=== PATIENT | female | born 1990 ===

== ENCOUNTER 2017-03-07 10:19 | Emergency (ER) | payer SELFPAY ==
[2017-03-07 10:39] VITALS: BP 128/93
--- NOTE | 2017-03-14 10:25 | ED Elopement Review ---
ED Pt Elopement review - Call Back decision Pt Call Back Decision: No action required
== END 2017-03-07 19:20 | disposition left against medical advice (07) ==
LOC: ED 10:19
DX: R06.02 Shortness of breath (principal); Z53.21 Procedure and treatment not carried out due to patient leaving prior to being seen by health care provider
CPT/HCPCS: 93005; 93010